=== PATIENT | female | born 1945 | race Caucasian/White ===

== ENCOUNTER 2018-07-14 23:44 | Observation (INO) | payer MEDICARE ==
[~2018-07-14] VITALS: Ht 167.6 cm; Wt 72.9 kg
[2018-07-15] MEDS ORDERED: SODIUM CHLORIDE FLUSH 10ML SYR IVF ONE
[2018-07-15] MEDS ORDERED: METO25TA35 PO (00:11)
[2018-07-15] MEDS ORDERED: DILT30TA33 PO (00:11)
[2018-07-15] MEDS ORDERED: HYDR12.53 PO (00:11)
[2018-07-15] MEDS ORDERED: OXYB5TAB7 PO (00:11)
[2018-07-15] MEDS ORDERED: ATOR10TA9 PO (00:11)
[2018-07-15 00:45] LABS: BASOPHILS % (AUTO) 0 % (0-1); EOSINOPHILS # (AUTO) 0.09 x10^3/uL (0-0.4); EOSINOPHILS % (AUTO) 1 % (1-7); LYMPHOCYTES # (AUTO) 1.11 x10^3/uL (1-3.4); LYMPHOCYTES % (AUTO) 10 % (22-44); MD NO; MEAN CORPUSCULAR HEMOGLOBIN 33.4 pg (27.0-34.8); MEAN CORPUSCULAR HGB CONC 33.9 g/dL (32.4-35.8); MEAN CORPUSCULAR VOLUME 98.7 fL (80-100); MONOCYTES # (AUTO) 0.75 x10^3/uL (0.2-0.8); MONOCYTES % (AUTO) 7 % (2-9); NEUTROPHILS # (AUTO) 9.49 x10^3/uL (1.8-6.8); NEUTROPHILS % (AUTO) 83 % (42-75); PLATELET COUNT 193 x10^3/uL (130-400); RED BLOOD COUNT 4.91 x10^6/uL (3.82-5.3); RED CELL DISTRIBUTION WIDTH 13.7 % (9.6-15.2)
[2018-07-15 00:56] LABS: ALBUMIN 3.6 g/dL (3.4-5.0); ANION GAP 7 mmol/L (5-15); CALCIUM 9.9 mg/dL (8.5-10.1); CHLORIDE 106 mmol/L (98-107); CREATININE 1.01 mg/dL (0.55-1.02)
[2018-07-15 01:00] LABS: TROPONIN I < 0.015 ng/mL (0.000-0.045)
[2018-07-15] MEDS ORDERED: OMNIPAQUE 350 MG/ML, 100ML BOTTLE ONE (01:54)
[2018-07-15] MEDS ORDERED: SODIUM CHLORIDE FLUSH 10ML SYR IVF PRN (02:30)
[2018-07-15 02:37] LABS: BILIRUBIN, DIRECT 0.7 mg/dL (0.1-0.2)
[2018-07-15 02:39] LABS: BILIRUBIN,TOTAL 1.6 mg/dL (0.2-1.0); TOTAL PROTEIN 7.3 g/dL (6.4-8.2)
[2018-07-15 10:53] VITALS: BP 113/80
[2018-07-15 12:49] LABS: TROPONIN I < 0.015 ng/mL (0.000-0.045)
[2018-07-15] MEDS ORDERED: LIDODERM 5% PATCH TD PRN (14:00)
[2018-07-15] MEDS ORDERED: ONDANSETRON ODT 4 MG PO PRN (14:00)
[2018-07-15] MEDS ORDERED: ZOLPIDEM 5MG TABLET PO PRN (14:00)
[2018-07-15] MEDS ORDERED: NITROGLYCERIN 0.4 MG BOTTLE (25 TABS) SL PRN ×2 (14:00)
[2018-07-15] MEDS ORDERED: ACETAMINOPHEN 325 MG TABLET PO PRN (14:00)
[2018-07-15] MEDS ORDERED: morphine SULFATE 10 MG/ML, 1ML IVPush PRN (14:00)
[2018-07-15] MEDS ORDERED: NITROGLYCERIN 0.4 MG/SPRAY SL PRN (14:00)
[2018-07-15 16:19] VITALS: BP 105/70
[2018-07-15] MEDS: METOPROLOL TARTRATE 50 MG TABLET PO SCH (18:00)
[2018-07-15 18:49] LABS: TROPONIN I < 0.015 ng/mL (0.000-0.045)
[2018-07-15 20:53] VITALS: BP 112/69
[2018-07-15] MEDS: DILTIAZEM 60 MG TABLET PO SCH (20:55)
[2018-07-15] MEDS: OXYBUTYNIN CHLORIDE 5 MG TABLET PO SCH (20:55)
[2018-07-15] MEDS ORDERED: SODIUM CHLORIDE FLUSH 10ML SYR IVF SCH (21:00)
[2018-07-16 00:09] VITALS: BP 105/68
[2018-07-16 00:37] LABS: TROPONIN I < 0.015 ng/mL (0.000-0.045)
[2018-07-16 05:12] VITALS: BP 118/72
[2018-07-16 05:38] LABS: CHLORIDE 107 mmol/L (98-107)
[2018-07-16 05:46] LABS: BASOPHILS # (AUTO) 0.04 x10^3/uL (0-0.1); BASOPHILS % (AUTO) 1 % (0-1); EOSINOPHILS # (AUTO) 0.25 x10^3/uL (0-0.4); EOSINOPHILS % (AUTO) 4 % (1-7); LYMPHOCYTES # (AUTO) 2.91 x10^3/uL (1-3.4); LYMPHOCYTES % (AUTO) 50 % (22-44); MD NO; MEAN CORPUSCULAR HEMOGLOBIN 33.4 pg (27.0-34.8); MEAN CORPUSCULAR HGB CONC 33.6 g/dL (32.4-35.8); MEAN CORPUSCULAR VOLUME 99.3 fL (80-100); MEAN PLATELET VOLUME 10.2 fL (7.4-10.4); MONOCYTES # (AUTO) 0.45 x10^3/uL (0.2-0.8); MONOCYTES % (AUTO) 8 % (2-9); NEUTROPHILS # (AUTO) 2.17 x10^3/uL (1.8-6.8); NEUTROPHILS % (AUTO) 37 % (42-75); PLATELET COUNT 159 x10^3/uL (130-400); RED CELL DISTRIBUTION WIDTH 13.9 % (9.6-15.2)
[2018-07-16 05:53] LABS: ANION GAP 8 mmol/L (5-15); CALCIUM 8.7 mg/dL (8.5-10.1); CREATININE 0.85 mg/dL (0.55-1.02)
[2018-07-16 06:00] VITALS: BP 120/74
[2018-07-16] MEDS ORDERED: LEVOTHYROXINE 100 MCG TABLET PO SCH (06:00)
[2018-07-16] MEDS ORDERED: ASPIRIN 325 MG TABLET EC PO SCH (06:00)
[2018-07-16] MEDS: METOPROLOL TARTRATE 50 MG TABLET PO SCH (06:40)
[2018-07-16 06:53] VITALS: BP 110/67
[2018-07-16] MEDS ORDERED: REGADENOSON 0.4 MG/5 ML SYRINGE ONE (08:19)
[2018-07-16] MEDS ORDERED: BENAZEPRIL 20 MG TABLET PO SCH (09:00)
[2018-07-16] MEDS ORDERED: ENOXAPARIN 30 MG/0.3 ML SQ SCH (09:00)
[2018-07-16] MEDS: DILTIAZEM 60 MG TABLET PO SCH (09:00)
[2018-07-16] MEDS ORDERED: ENOXAPARIN 40 MG/0.4 ML SQ SCH (09:00)
[2018-07-16] MEDS ORDERED: SENNA/DOCUSATE TABLET PO SCH (09:00)
[2018-07-16] MEDS ORDERED: BENAZEPRIL 10 MG TABLET ONE (09:58)
[2018-07-16] MEDS ORDERED: DILTIAZEM 30 MG TABLET ONE (09:59)
[2018-07-16] MEDS: OXYBUTYNIN CHLORIDE 5 MG TABLET PO SCH (10:07)
[2018-07-16 13:37] VITALS: BP 99/65
== END 2018-07-16 15:17 | disposition home or self-care (01) ==
LOC: ED 23:59 → INTOOBSV 07-15 02:25 → EDIP 07-15 02:25 → 5SO 07-15 11:01 → DCLOUNGE 07-16 15:07
PROVIDERS: ADMIT Internal Medicine; ATTEND Internal Medicine
DX: R07.89 Other chest pain (principal); E03.9 Hypothyroidism, unspecified; E78.00 Pure hypercholesterolemia, unspecified; E78.5 Hyperlipidemia, unspecified; I10 Essential (primary) hypertension; I25.2 Old myocardial infarction; I48.91 Unspecified atrial fibrillation; I71.2 Thoracic aortic aneurysm, without rupture; I73.9 Peripheral vascular disease, unspecified; K80.20 Calculus of gallbladder without cholecystitis without obstruction; F17.200 Nicotine dependence, unspecified, uncomplicated; Z86.73 Personal history of transient ischemic attack (TIA), and cerebral infarction without residual deficits
CPT/HCPCS: 36415; 71045; 71275; 74175; 76705; 78452; 80048; 84443; 84484; 85025; 93005; 93017; 96372; 99285; A9502; C9898; G0378; J1650; J2785; Q9967; 82040; 82247; 82248; 84075; 84155; 84450; 84460

== ENCOUNTER → 2018-08-12 | Outpatient (CLI) | payer MEDICARE ==
[~2018-08-12] MED LIST: ACET-1600 PO; ASPI325T17 PO; ATOR10TA9 PO; BENA40TA3 PO; DILT30TA33 PO; DILT60TA30 PO; HYDR12.53 PO; HYDR25TA6 PO; LEVO100T5 PO; METO25TA35 PO; METO50TA82 PO; ONDA4TAB10 PO; OXYB5TAB7 PO; OXYC-306 PO
== END | disposition home or self-care (01) ==
LOC: STAR 13:28
PROVIDERS: ATTEND Surgery
DX: Z02.9 Encounter for administrative examinations, unspecified (principal)

== ENCOUNTER → 2018-08-12 | Outpatient (CLI) | payer MEDICARE ==
[2018-08-12 15:05] LABS: BASOPHILS # (AUTO) 0.05 x10^3/uL (0-0.1); BASOPHILS % (AUTO) 1 % (0-1); EOSINOPHILS % (AUTO) 4 % (1-7); LYMPHOCYTES # (AUTO) 2.93 x10^3/uL (1-3.4); LYMPHOCYTES % (AUTO) 41 % (22-44); MD NO; MEAN CORPUSCULAR HEMOGLOBIN 32.8 pg (27.0-34.8); MEAN CORPUSCULAR HGB CONC 33.2 g/dL (32.4-35.8); MEAN CORPUSCULAR VOLUME 98.8 fL (80-100); MEAN PLATELET VOLUME 9.6 fL (7.4-10.4); MONOCYTES # (AUTO) 0.75 x10^3/uL (0.2-0.8); MONOCYTES % (AUTO) 10 % (2-9); NEUTROPHILS # (AUTO) 3.18 x10^3/uL (1.8-6.8); NEUTROPHILS % (AUTO) 44 % (42-75); PLATELET COUNT 182 x10^3/uL (130-400); RED BLOOD COUNT 5.09 x10^6/uL (3.82-5.3); RED CELL DISTRIBUTION WIDTH 13.3 % (9.6-15.2)
[2018-08-12 15:13] LABS: ALBUMIN 3.7 g/dL (3.4-5.0); ANION GAP 4 mmol/L (5-15); CALCIUM 9.2 mg/dL (8.5-10.1); CHLORIDE 108 mmol/L (98-107)
[2018-08-12 15:17] LABS: ALANINE AMINOTRANSFERASE 21 U/L (12-78); ALKALINE PHOSPHATASE 68 U/L (45-117); BILIRUBIN,TOTAL 0.8 mg/dL (0.2-1.0); CREATININE 1.01 mg/dL (0.55-1.02); TOTAL PROTEIN 7.6 g/dL (6.4-8.2)
== END | disposition home or self-care (01) ==
LOC: STAR 13:13
PROVIDERS: ATTEND Surgery
DX: Z01.818 Encounter for other preprocedural examination (principal); K80.10 Calculus of gallbladder with chronic cholecystitis without obstruction
CPT/HCPCS: 36415; 80053; 85025; 93005

== ENCOUNTER 2018-08-17 11:33 | Observation (INO) | payer MEDICARE ==
[~2018-08-17] VITALS: Ht 167.6 cm; Wt 75.8 kg
[~2018-08-17 11:33] MED LIST changes: -ONDA4TAB10 PO; -OXYC-306 PO
[2018-08-17] MEDS ORDERED: LACTATED RINGERS 1,000 ML IV SCH (12:07)
[2018-08-17 12:34] VITALS: BP 118/76
[2018-08-17] MEDS ORDERED: BUPIVACAINE/PF-EPI 0.5% 1:200K ONE (13:10)
[2018-08-17] MEDS ORDERED: ONDANSETRON 2MG/ML, 2ML ONE (13:58)
[2018-08-17] MEDS ORDERED: ROCURONIUM 10 MG/ML,10ML ONE (13:58)
[2018-08-17] MEDS ORDERED: NEOSTIGMINE 1 MG/ML, 10ML ONE (13:58)
[2018-08-17] MEDS ORDERED: CEFAZOLIN 1,000 MG ONE (13:58)
[2018-08-17] MEDS ORDERED: DEXAMETHASONE 4 MG/ML, 1ML ONE (13:58)
[2018-08-17] MEDS ORDERED: GLYCOPYRROLATE 0.2MG/1ML, 5ML ONE (13:58)
[2018-08-17] MEDS ORDERED: SUCCINYLCHOLINE 20 MG/ML, 10ML ONE (13:58)
[2018-08-17] MEDS ORDERED: FENTANYL PF 100 MCG/2ML ONE ×2 (14:00→15:16)
[2018-08-17] MEDS ORDERED: hydrALAzine 20 MG/ML, 1ML IV PRN (15:00)
[2018-08-17] MEDS ORDERED: LABETALOL 5MG/ML, 20ML IV PRN (15:00)
[2018-08-17] MEDS ORDERED: HYDROmorphone 1 MG/ML, 1ML IV PRN (15:00)
[2018-08-17] MEDS ORDERED: ONDANSETRON 2MG/ML, 2ML IV PRN (15:00)
[2018-08-17] MEDS ORDERED: ACETAMINOPHEN 325 MG TABLET PO PRN (15:00)
[2018-08-17] MEDS ORDERED: FENTANYL PF 100 MCG/2ML IV PRN (15:00)
[2018-08-17] MEDS ORDERED: OXYcodone 5 MG/5 ML ORAL.SOL UDC PO PRN (15:00)
[2018-08-17] MEDS: LACTATED RINGERS 1,000 ML IV SCH (15:12)
[2018-08-17] MEDS ORDERED: OXYcodone 5 MG/5 ML ORAL.SOL UDC ONE (15:16)
[2018-08-17] MEDS ORDERED: PROMETHAZINE 25 MG/ML, 1ML IM PRN (15:30)
[2018-08-17] MEDS ORDERED: morphine SULFATE 10 MG/ML, 1ML IVPush PRN (15:30)
[2018-08-17] MEDS ORDERED: ONDANSETRON 2MG/ML, 2ML IVPush PRN (15:30)
[2018-08-17] MEDS ORDERED: hydrALAzine 20 MG/ML, 1ML ONE (15:41)
[2018-08-17 20:36] VITALS: BP 103/72
[2018-08-17] MEDS ORDERED: OXYBUTYNIN CHLORIDE 5 MG TABLET PO SCH (21:10)
[2018-08-17] MEDS ORDERED: ACETAMINOPHEN 500 MG TABLET PO PRN (21:30)
[2018-08-18] MEDS: LACTATED RINGERS 1,000 ML IV SCH ×2 (01:15→01:30)
[2018-08-18 02:01] VITALS: BP 101/62
[2018-08-18 05:41] VITALS: BP 95/63
[2018-08-18] MEDS ORDERED: LEVOTHYROXINE 100 MCG TABLET PO SCH (06:00)
[2018-08-18] MEDS ORDERED: METOPROLOL TARTRATE 25 MG TABLET PO SCH (06:00)
[2018-08-18 07:19] VITALS: BP 93/57
[2018-08-18] MEDS ORDERED: HYDROCHLOROTHIAZIDE 25 MG TABLET PO SCH (09:00)
[2018-08-18] MEDS ORDERED: BENAZEPRIL 20 MG TABLET PO SCH (09:00)
[2018-08-18] MEDS ORDERED: DILTIAZEM 60 MG CAP.ER.12H PO SCH (09:00)
[2018-08-18] MEDS ORDERED: ASPIRIN 325 MG TABLET PO SCH (09:00)
[2018-08-18 09:52] VITALS: BP 95/61
[2018-08-18] MEDS ORDERED: OXYC-306 PO (10:29)
[2018-08-18] MEDS ORDERED: ONDA4TAB10 PO (10:30)
== END 2018-08-18 10:55 | disposition home or self-care (01) ==
LOC: OUT 11:33 → 4NOR 19:00 → OUT 23:16 → 4NOR 23:16 → DCLOUNGE 08-18 10:40
PROVIDERS: ADMIT Surgery; ATTEND Surgery
DX: K80.10 Calculus of gallbladder with chronic cholecystitis without obstruction (principal); K66.0 Peritoneal adhesions (postprocedural) (postinfection); K82.8 Other specified diseases of gallbladder
CPT/HCPCS: 47562; 88304; G0378; J0330; J0690; J1100; J2270; J2405; J2710; J3010; J3490; J7120

== ENCOUNTER 2018-08-30 07:43 | Observation (INO) | payer MEDICARE ==
[~2018-08-30] VITALS: Ht 167.6 cm; Wt 72.0 kg
[~2018-08-30 07:43] MED LIST changes: +ONDA4TAB10 PO; +OXYC-306 PO
[2018-08-30 08:33] VITALS: BP 129/85
[2018-08-30] MEDS ORDERED: LIDOCAINE-MPF 1%, 5ML ONE (09:35)
[2018-08-30] MEDS ORDERED: MIDAZOLAM 1 MG/ML, 5ML ONE (09:47)
[2018-08-30] MEDS ORDERED: NITROGLYCERIN 5 MG/ML, 10ML ONE (09:47)
[2018-08-30] MEDS ORDERED: FENTANYL PF 100 MCG/2ML ONE (09:47)
[2018-08-30] MEDS ORDERED: FLUMAZENIL 0.1 MG/1 ML, 5ML ONE (09:47)
[2018-08-30] MEDS ORDERED: NALOXONE 1 MG/ML, 2ML ONE (09:48)
[2018-08-30] MEDS ORDERED: PROTAMINE SULFATE 10 MG/ML, 25ML ONE (09:48)
[2018-08-30] MEDS ORDERED: HEPARIN 1,000 UNITS/ML, 10ML ONE (09:48)
[2018-08-30] MEDS ORDERED: SODIUM CHLORIDE 0.9% 1,000 ML IV SCH (11:16)
[2018-08-30] MEDS ORDERED: ONDANSETRON 2MG/ML, 2ML IV PRN (11:30)
[2018-08-30] MEDS ORDERED: VISIPAQUE 270 MG/ML, 50ML BOTTLE ONE (12:12)
== END 2018-08-30 14:25 | disposition home or self-care (01) ==
LOC: OUT 07:43 → ORIP 11:16
PROVIDERS: ADMIT Surgery; ATTEND Surgery
DX: I70.8 Atherosclerosis of other arteries (principal); I10 Essential (primary) hypertension; E78.5 Hyperlipidemia, unspecified; E03.9 Hypothyroidism, unspecified; I73.9 Peripheral vascular disease, unspecified; E78.00 Pure hypercholesterolemia, unspecified; I48.91 Unspecified atrial fibrillation
CPT/HCPCS: 75625; 75630; 75716; 99156; 99157; C1751; C1769; C1894; G0378; J1644; J2250; J2310; J2720; J3010; Q9966